=== PATIENT | female | born 1995 | race Caucasian/White ===

== ENCOUNTER 2020-10-09 20:15 | Emergency (ER) | payer SELFPAY ==
[~2020-10-09] VITALS: Ht 157.5 cm; Wt 49.9 kg
[2020-10-09 20:19] VITALS: Ht 157.5 cm; Wt 49.9 kg
[2020-10-09 20:36] LABS: HCG URINE NEGATIVE (NEGATIVE)
[2020-10-09 20:36] LABS: BASOPHILS 0.2 % (0-2); EOSINOPHILS 1.5 % (0-7); HEMATOCRIT 41.5 % (36.0-48.0); HEMOGLOBIN 14.3 g/dL (12-16); IMMATURE GRANULOCYTES 0.1 % (0-5); LYMPHOCYTE ABS# 1.52 10x3/uL (1.18-3.74); LYMPHOCYTES 16.3 % (15-50); MCH 30.6 pg (26.0-34.0); MCHC 34.5 g/dL (31.0-37.0); MCV 88.9 fL (80.0-100.0); MEAN PLATELET VOLUME 10.1 fL (7.4-10.4); MONOCYTES 8.1 % (2-11); NEUTROPHIL ABS# 6.86 10x3/uL (1.56-6.13); NEUTROPHILS 73.8 % (40-80); PLATELET COUNT 215 10x3/uL (130-400); RBC 4.67 10x6/uL (4.00-5.40); RDW 12.6 % (11.5-14.5); WBC 9.3 10x3/uL (4.8-10.8)
[2020-10-09 20:40] LABS: BILIRUBIN NEGATIVE (NEGATIVE); KETONE NEGATIVE (NEGATIVE); NITRITE NEGATIVE (NEGATIVE); UROBILINOGEN NORMAL mg/dL (< 2)
[2020-10-09 20:41] LABS: BACTERIA FEW HPF (NONE SEEN); SQUAMOUS EPITHELIAL NONE SEEN HPF (0-4); WHITE CELLS - URINE NONE SEEN HPF (0-4)
[2020-10-09 20:43] LABS: UDS - AMPHET NEGATIVE QUAL (NEGATIVE); UDS - BARB NEGATIVE QUAL (NEGATIVE); UDS - BENZO NEGATIVE QUAL (NEGATIVE); UDS - COCAINE NEGATIVE QUAL (NEGATIVE); UDS - OPIATE NEGATIVE QUAL (NEGATIVE); UDS - PCP NEGATIVE QUAL (NEGATIVE); UDS - THC NEGATIVE QUAL (NEGATIVE)
[2020-10-09 20:44] LABS: CALC OSMOLALITY 268 mosm/kg (275-300); CARBON DIOXIDE 26.3 mmol/L (21.0-32.0); CHLORIDE - SERUM 101 mmol/L (98-107); CREATININE - SERUM 0.8 mg/dL (0.6-1.3); GLUCOSE 102 mg/dL (74-106); POTASSIUM - SERUM 3.2 mmol/L (3.5-5.1); SODIUM 136 mmol/L (136-145); UREA NITROGEN 5 mg/dL (7-18); eGFR NON AFRICAN AMERICAN > 90 mL/min (90-120)
[2020-10-09 20:50] LABS: ALBUMIN 4.2 g/dL (3.4-5.0); ALKALINE PHOSPHATASE 109 U/L (30-120); ALT (SGPT) 30 U/L (10-68); BILIRUBIN - TOTAL 0.55 mg/dL (0.2-1.3); MAGNESIUM - SERUM 2.1 mg/dL (1.8-2.4); PROTEIN - SERUM 7.9 g/dL (6.4-8.2)
[2020-10-09 21:32] LABS: SARS-CoV-2 ANTIGEN NEGATIVE- SARS-COV-2 (NEGATIVE)
[2020-10-10 04:25] VITALS: BP 127/71
== END 2020-10-10 04:26 ==
LOC: D.ER 20:15
PROVIDERS: Family Medicine
DX: R44.0 Auditory hallucinations (principal); F41.8 Other specified anxiety disorders; R44.1 Visual hallucinations; F43.10 Post-traumatic stress disorder, unspecified

== ENCOUNTER 2020-10-16 00:46 | Emergency (ER) | payer MEDICAID ==
[~2020-10-16] VITALS: Ht 157.5 cm; Wt 45.5 kg
[2020-10-16 00:48] VITALS: Ht 157.5 cm; Wt 45.5 kg
[2020-10-16 01:22] LABS: BILIRUBIN NEGATIVE (NEGATIVE); KETONE LARGE mg/dL (NEGATIVE); NITRITE NEGATIVE (NEGATIVE); UROBILINOGEN NORMAL mg/dL (< 2)
[2020-10-16 01:22] LABS: HCG URINE NEGATIVE (NEGATIVE)
[2020-10-16 01:40] LABS: UDS - AMPHET POSITIVE QUAL (NEGATIVE); UDS - BARB NEGATIVE QUAL (NEGATIVE); UDS - BENZO NEGATIVE QUAL (NEGATIVE); UDS - COCAINE NEGATIVE QUAL (NEGATIVE); UDS - OPIATE NEGATIVE QUAL (NEGATIVE); UDS - PCP NEGATIVE QUAL (NEGATIVE); UDS - THC NEGATIVE QUAL (NEGATIVE)
[2020-10-16 02:25] LABS: BASOPHILS 0.3 % (0-2); EOSINOPHILS 1.6 % (0-7); HEMATOCRIT 39.3 % (36.0-48.0); HEMOGLOBIN 13.3 g/dL (12-16); IMMATURE GRANULOCYTES 0.1 % (0-5); LYMPHOCYTES 29.9 % (15-50); MCH 30.6 pg (26.0-34.0); MCHC 33.8 g/dL (31.0-37.0); MCV 90.3 fL (80.0-100.0); MEAN PLATELET VOLUME 10.6 fL (7.4-10.4); MONOCYTES 13.5 % (2-11); NEUTROPHIL ABS# 3.83 10x3/uL (1.56-6.13); NEUTROPHILS 54.6 % (40-80); PLATELET COUNT 179 10x3/uL (130-400); RBC 4.35 10x6/uL (4.00-5.40); RDW 12.7 % (11.5-14.5)
[2020-10-16 02:39] LABS: ALKALINE PHOSPHATASE 96 U/L (30-120); ALT (SGPT) 23 U/L (10-68); CALC OSMOLALITY 272 mosm/kg (275-300); CALCIUM 9.2 mg/dL (8.5-10.1); CARBON DIOXIDE 27.5 mmol/L (21.0-32.0); CHLORIDE - SERUM 102 mmol/L (98-107); CREATININE - SERUM 0.7 mg/dL (0.6-1.3); GLUCOSE 116 mg/dL (74-106); MAGNESIUM - SERUM 1.8 mg/dL (1.8-2.4); PROTEIN - SERUM 7.6 g/dL (6.4-8.2); SODIUM 137 mmol/L (136-145); UREA NITROGEN 8 mg/dL (7-18); eGFR NON AFRICAN AMERICAN > 90 mL/min (90-120)
[2020-10-16 02:54] LABS: POTASSIUM - SERUM 2.9 mmol/L (3.5-5.1)
--- NOTE | 2020-10-16 03:24 | NUR ---
PATIENT IN ER FOR SEEING THINGS AND SHE IS WANTING MENTAL HEALTH HELP. SHE DENIES BEING SUICIDIAL AND EVER HAVING BEEN SUICIDIAL. 1-800 NUMBER GIVEN FOR FUTURE REFERENCE.
[2020-10-16 05:34] VITALS: BP 125/86
== END 2020-10-16 05:35 | disposition home or self-care (01) ==
LOC: D.ER 00:46
PROVIDERS: Family Medicine
DX: R44.0 Auditory hallucinations (principal); R44.1 Visual hallucinations; F15.90 Other stimulant use, unspecified, uncomplicated

== ENCOUNTER 2020-10-16 07:32 | Emergency (ER) | payer MEDICAID ==
[~2020-10-16] VITALS: Ht 157.5 cm; Wt 54.5 kg
[2020-10-16 07:47] VITALS: Ht 157.5 cm; Wt 54.5 kg
[2020-10-16 08:11] LABS: BASOPHILS 0.2 % (0-2); EOSINOPHILS 1.5 % (0-7); HEMATOCRIT 40.6 % (36.0-48.0); HEMOGLOBIN 13.6 g/dL (12-16); IMMATURE GRANULOCYTES 0.1 % (0-5); LYMPHOCYTE ABS# 1.82 10x3/uL (1.18-3.74); LYMPHOCYTES 21.1 % (15-50); MCH 30.4 pg (26.0-34.0); MCHC 33.5 g/dL (31.0-37.0); MCV 90.6 fL (80.0-100.0); MEAN PLATELET VOLUME 10.7 fL (7.4-10.4); MONOCYTES 12.8 % (2-11); NEUTROPHIL ABS# 5.53 10x3/uL (1.56-6.13); NEUTROPHILS 64.3 % (40-80); PLATELET COUNT 202 10x3/uL (130-400); RBC 4.48 10x6/uL (4.00-5.40); RDW 12.8 % (11.5-14.5); WBC 8.6 10x3/uL (4.8-10.8)
[2020-10-16 08:25] LABS: ALBUMIN 4.2 g/dL (3.4-5.0); ALKALINE PHOSPHATASE 102 U/L (30-120); ALT (SGPT) 19 U/L (10-68); BILIRUBIN - TOTAL 0.63 mg/dL (0.2-1.3); CALC OSMOLALITY 271 mosm/kg (275-300); CALCIUM 9.1 mg/dL (8.5-10.1); CARBON DIOXIDE 28.6 mmol/L (21.0-32.0); CHLORIDE - SERUM 101 mmol/L (98-107); CREATININE - SERUM 0.8 mg/dL (0.6-1.3); GLUCOSE 93 mg/dL (74-106); PROTEIN - SERUM 8.1 g/dL (6.4-8.2); SODIUM 137 mmol/L (136-145); UREA NITROGEN 7 mg/dL (7-18); eGFR NON AFRICAN AMERICAN > 90 mL/min (90-120)
[2020-10-16 08:32] LABS: POTASSIUM - SERUM 2.8 mmol/L (3.5-5.1)
[2020-10-16 09:23] LABS: SARS-CoV-2 ANTIGEN NEGATIVE- SARS-COV-2 (NEGATIVE)
[2020-10-16 12:35] VITALS: BP 123/62
== END 2020-10-16 12:37 ==
LOC: D.ER 07:32
PROVIDERS: Family Medicine
DX: F23 Brief psychotic disorder (principal); R44.0 Auditory hallucinations; R44.1 Visual hallucinations; F43.10 Post-traumatic stress disorder, unspecified